=== PATIENT | male | born 1995 | race Caucasian/White ===

== ENCOUNTER 2023-02-17 09:53 | Outpatient (CLI) | payer OTHER, SELFPAY ==
[2023-02-17 11:18] LABS: Volume Semen 3.5 mL (1.5-5.0)
[2023-02-17 11:19] LABS: Liquefaction Semen Complete in 30 min. (<30 minutes); Semen Color Opaque (Grey-opaque); Semen Immotility 50 %; Semen Non-Progressive Motility 10 %; Semen Progressive Motility 40 % (>32); Semen Total Motility 50 (>40% (PM+NP)); Semen Viscosity Not Increased (Not Increa.); Sperm Count 87.8 Mil/mL (60-150 million/mL)
[2023-02-17 11:20] LABS: Semen Morphology Result to Follow
[2023-02-26 00:29] LABS: Fructose, Semen 270 mg/dL (150-600)
== END 2023-02-17 09:54 | disposition home or self-care (01) ==
LOC: CHSLAB 09:59
PROVIDERS: PCP Internal Medicine; Visit Provider Obstetrics & Gynecology
DX: Z31.41 Encounter for fertility testing (principal)
CPT/HCPCS: 82757; 88160; 89320